=== PATIENT | female | born 1985 | race Caucasian/White ===

== ENCOUNTER 2018-06-17 16:05 | Emergency (ER) | payer OTHER ==
[2018-06-17] MEDS ORDERED: EPINEPHRINE INJ/PF 1 MG/1 ML AMPULE IM ONE (16:32)
[2018-06-17] MEDS ORDERED: METHYLPREDNISOLONE INJ 125 MG/2 ML SDV IV ONE (16:33)
[2018-06-17] MEDS ORDERED: FAMOTIDINE INJ/PF 20 MG/2 ML SDV IV ONE (16:34)
[2018-06-17] MEDS ORDERED: DIPHENHYDRAMINE HCL 50 MG/ML VIAL IV ONE (16:34)
--- NOTE | 2018-06-17 16:36 | ER Document Report ---
ED Medical Screen (RME) - General Chief Complaint: Difficulty Swallowing Stated Complaint: THROAT PAIN/BREATHING PROBLEMS Time Seen by Provider: 06/17/18 16:22 TRAVEL OUTSIDE OF THE [place] IN LAST 30 DAYS: No - HPI Notes: 06/17/18 16:35 Patient is a 32-year-old female that presents to the emergency department for chief complaint of allergic reaction. Patient reports multiple allergies to sense. She was at work and started having throat swelling. She states she feels like her voice is changing. She denies history of needing epinephrine in the past or anaphylactic reaction. Her symptoms started about 30 minutes prior to arrival and are getting worse. ROS: GENERAL: Denies fever of chills CV: Denies chest pain PHYSICAL EXAMINATION: GENERAL: Well-appearing, well-nourished and in no acute distress. HEAD: Atraumatic, normocephalic. EYES: Pupils equal round extraocular movements intact, conjunctiva are normal. ENT: No oral pharyngeal edema. hoarse voice NECK: Normal range of motion LUNGS: No wheezing, no respiratory distress Musculoskeletal: Normal range of motion NEUROLOGICAL: Normal speech, normal gait. PSYCH: Normal mood, normal affect. MDM: Patient seen and examined for rapid initial assessment. Vital signs reviewed. A comprehensive ED assessment and evaluation of the patient, analysis of test results and completion of the medical decision making process will be conducted by additional ED providers. - Related Data Allergies/Adverse Reactions: amitriptyline Allergy (Verified 06/17/18 16:10) gabapentin Allergy (Verified 06/17/18 16:10) pregabalin [From Lyrica] Allergy (Verified 06/17/18 16:10) Past Medical History - Social History Frequency of alcohol use: None Drug Abuse: None Pulmonary Medical History: Reports: Hx Asthma Renal/ Medical History: Denies: Hx Peritoneal Dialysis Past Surgical History: Reports: Hx Appendectomy Physical Exam - Vital signs Vitals: Temp Pulse Resp BP Pulse Ox 97.5 F 87 18 130/79 H 97 06/17/18 16:07 06/17/18 16:07 06/17/18 16:07 06/17/18 16:07 06/17/18 16:07 Course - Vital Signs Vital signs: Temp Pulse Resp BP Pulse Ox 97.5 F 87 18 130/79 H 97 06/17/18 16:07 06/17/18 16:07 06/17/18 16:07 06/17/18 16:07 06/17/18 16:07
--- NOTE | 2018-06-17 18:09 | ER Document Report ---
ED General - General Chief Complaint: Difficulty Swallowing Stated Complaint: THROAT PAIN/BREATHING PROBLEMS Time Seen by Provider: 06/17/18 16:22 Notes: 32-year-old female patient emergency department with complaint of possible allergic reaction. Patient states that she has frequent allergic reactions. [place] tightness in her throat. Presented here by car. On arrival patient was initially seen by triage physician. Appendectomy, Pepcid, Benadryl, Solu-Medrol given. Patient feels much better at this time. Denies any complaints at this time. TRAVEL OUTSIDE OF THE [place] IN LAST 30 DAYS: No - HPI Onset: Just prior to arrival Quality of pain: No pain Severity: Moderate Pain Level: Denies Associated symptoms: Sore throat Exacerbated by: Denies Relieved by: Denies - Related Data Allergies/Adverse Reactions: amitriptyline Allergy (Verified 06/17/18 16:10) gabapentin Allergy (Verified 06/17/18 16:10) pregabalin [From Lyrica] Allergy (Verified 06/17/18 16:10) Past Medical History - General Information source: Patient - Social History Smoking Status: Never Smoker Frequency of alcohol use: None Drug Abuse: None Lives with: Spouse/Significant other Family History: Reviewed & Not Pertinent Patient has suicidal ideation: No Patient has homicidal ideation: No Pulmonary Medical History: Reports: Hx Asthma Renal/ Medical History: Denies: Hx Peritoneal Dialysis Past Surgical History: Reports: Hx Appendectomy Review of Systems - Review of Systems Notes: Constitutional: denies: Chills, Diaphoresis, Fever, Malaise, Weakness EENT: denies: Eye discharge, Blurred vision, Tearing, Double vision, Nose congestion, Nose discharge, difficulty swallowing noted Cardiovascular: denies: Palpitations, Heart racing, Orthopnea, Dyspnea, Chest pain Respiratory: denies: Cough, Hurts to breathe, Wheezing, Shortness of breath Gastrointestinal: denies: Abdominal pain, Diarrhea, Nausea, Vomiting, Black stools, bright red blood in stool Genitourinary: denies: Burning, Dysuria, Discharge, Frequency, Flank pain, Hematuria Musculoskeletal: denies: Joint pain, Joint swelling, Muscle pain, Muscle stiffness, back pain Hematologic/Lymphatic: denies: Anemia, Easy bleeding, Easy bruising, Blood clots Neurological/Psychological: denies: Confusion, Dementia, Depression, Loss of consciousness Skin: No lesions, no masses, no skin breakdown, no abscesses Physical Exam - Vital signs Vitals: Temp Pulse Resp BP Pulse Ox 97.5 F 87 18 130/79 H 97 06/17/18 16:07 06/17/18 16:07 06/17/18 16:07 06/17/18 16:07 06/17/18 16:07 Interpretation: Normal - General General appearance: Appears well, Alert - HEENT Head: Normocephalic, Atraumatic Eyes: Normal Pupils: PERRL Nasal: Normal Mouth/Lips: Normal Mucous membranes: Normal Pharynx: Normal Neck: Normal - Respiratory Respiratory status: No respiratory distress Chest status: Nontender Breath sounds: Normal Chest palpation: Normal - Cardiovascular Rhythm: Tachycardia Heart sounds: Normal auscultation Murmur: No - Abdominal Inspection: Normal Distension: No distension Bowel sounds: Normal Tenderness: Nontender Organomegaly: No organomegaly - Back Back: Normal, Nontender - Extremities General upper extremity: Normal inspection, Nontender, Normal color, Normal ROM, Normal temperature General lower extremity: Normal inspection, Nontender, Normal color, Normal ROM, Normal temperature, Normal weight bearing. No: Lizeth's sign - Neurological Neuro grossly intact: Yes Cognition: Normal Orientation: AAOx4 Josh Coma Scale Eye Opening: Spontaneous Josh Coma Scale Verbal: Oriented Josh Coma Scale Motor: Obeys Commands [place] Coma Scale Total: 15 Speech: Normal Motor strength normal: LUE, RUE, LLE, RLE Sensory: Normal - Psychological Associated symptoms: Normal affect, Normal mood - Skin Skin Temperature: Warm Skin Moisture: Dry Skin Color: Normal Course - Re-evaluation Re-evalutation: 06/17/18 19:43 Patient has no signs of anaphylaxis. Has been observed here for quite some time. No rebound. Will advise that she continue with prednisone for the next few days. I will advised she continue with Zantac as well. Will discharge at this time in stable condition. - Vital Signs Vital signs: Temp Pulse Resp BP Pulse Ox 97.5 F 87 21 H 107/62 97 06/17/18 16:07 06/17/18 16:07 06/17/18 19:12 06/17/18 19:12 06/17/18 19:12 Discharge - Discharge Clinical Impression: Acute bronchospasm Condition: Good Disposition: HOME, SELF-CARE Instructions: Bronchospasm ([facility]) Prescriptions: Epinephrine [Epipen 2-Francesco] 0.3 mg IJ ONCE PRN #1 auto.injct PRN Reason: Prednisone [Deltasone 20 mg Tablet] 3 tab PO DAILY 2 Days #6 tablet Ranitidine HCl 75 mg PO BID 30 Days #60 tablet Referrals: VANNESA GUTIERREZ DO [Primary Care Provider] - Follow up as needed
[2018-06-17 20:04] VITALS: BP 114/75
== END 2018-06-17 20:15 | disposition home or self-care (01) ==
LOC: ER 16:05
DX: J45.909 Unspecified asthma, uncomplicated (principal); J02.9 Acute pharyngitis, unspecified; R00.0 Tachycardia, unspecified; Z88.6 Allergy status to analgesic agent; Z88.8 Allergy status to other drugs, medicaments and biological substances
CPT/HCPCS: 99284; 96372; 96374; 96375; J1200; J0171; J2930; S0028